=== PATIENT | female | born 1980 | race American Indian/Alaskan Native ===

== ENCOUNTER 2018-01-12 15:09 | Emergency (ER) | payer SELFPAY ==
[2018-01-12 15:15] VITALS: TEMP 97.4; O2SAT 98
--- NOTE | 2018-01-12 15:49 | C.PDOC ---
History Of Present Illness 37 y/o female presents to ED with complaints of ring stuck on right 4th digit for 2 days. Patient states she has tried lubricating area and putting ice on area with no improvement. Patient denies numbness, tingling or any other complaints at this time. Time Seen by Provider: 01/12/18 15:16 Chief Complaint (Nursing): Finger,Hand,&Wrist History Per: Patient History/Exam Limitations: no limitations Onset/Duration Of Symptoms: Days Current Symptoms Are (Timing): Still Present Past Medical History Reviewed: Historical Data, Nursing Documentation, Vital Signs Vital Signs: Last Vital Signs Temp 97.4 F L 01/12/18 15:12 Pulse 75 01/12/18 15:56 Resp 18 01/12/18 15:56 BP 160/90 H 01/12/18 15:56 Pulse Ox 98 01/12/18 15:56 - Medical History PMH: No Chronic Diseases Surgical History: No Surg Hx Family History: States: No Known Family Hx - Social History Hx Alcohol Use: No Hx Substance Use: No - Immunization History Hx Tetanus Toxoid Vaccination: Yes (2014) Hx Influenza Vaccination: No Hx Pneumococcal Vaccination: No Review Of Systems Except As Marked, All Systems Reviewed And Found Negative. Musculoskeletal: Positive for: Hand Pain Skin: Negative for: Rash Neurological: Negative for: Weakness, Numbness Physical Exam - Physical Exam Appears: Non-toxic, No Acute Distress Skin: Warm, Dry Head: Atraumatic, Normacephalic Eye(s): bilateral: Normal Inspection Oral Mucosa: Moist Extremity: Tenderness (to palpation distal to ring on right 4th finger), Capillary Refill (<2 seconds), No Deformity, Swelling (distal to ring on right 4th finger ), Other (Ring stuck on right 4th finger ) Pulses: Left Radial: Normal, Right Radial: Normal Neurological/Psych: Oriented x3, Normal Speech ED Course And Treatment O2 Sat by Pulse Oximetry: 98 (RA) Pulse Ox Interpretation: Normal Progress Note: Ring cutter used for removing ring. Patient tolerated well and discharged Disposition Counseled Patient/Family Regarding: Diagnosis, Need For Followup - Disposition Referrals: [facility] [Outside] Disposition: HOME/ ROUTINE Disposition Time: 15:50 Condition: STABLE Forms: [facility] (Malay), General Discharge Instructions Print Language: CITIZEN OF [place] - Clinical Impression Clinical Impression: Ring or other jewelry causing external constriction, initial encounter - Scribe Statement The provider has reviewed the documentation as recorded by the Scribe Magalys Aguirre All medical record entries made by the Scribe were at my direction and personally dictated by me. I have reviewed the chart and agree that the record accurately reflects my personal performance of the history, physical exam, medical decision making, and the department course for this patient. I have also personally directed, reviewed, and agree with the discharge instructions and disposition.
[2018-01-12 16:09] VITALS: BP 160/90; PULSE 75; RESP 18
== END 2018-01-12 15:59 | disposition home or self-care (01) ==
LOC: C.ER 15:09
DX: S69.91XA Unspecified injury of right wrist, hand and finger(s), initial encounter (principal); W49.04XA Ring or other jewelry causing external constriction, initial encounter; Y92.9 Unspecified place or not applicable